=== PATIENT | male | born 1950 | race Caucasian/White ===

== ENCOUNTER 2024-01-22 22:47 | Emergency (ER) | payer MEDICARE, OTHER ==
[2024-01-22] MEDS ORDERED: Sodium Chloride 0.9% 10 ML Syringe FLUSH PRN (22:53)
[2024-01-22] MEDS: Ondansetron 4 MG/2 ML SDV IVPUSH ONE ×2 (22:56→23:36)
[2024-01-22 23:14] LABS: BASOPHILS ABSOLUTE AUTO 0.07 K/uL (0.00-0.20); BASOPHILS PERCENT AUTO 0.6 % (0.0-2.0); EOSINOPHILS ABSOLUTE AUTO 0.24 K/uL (0.00-0.50); EOSINOPHILS PERCENT AUTO 1.9 % (0.0-5.0); HEMATOCRIT 40.9 % (39.0-49.0); HEMOGLOBIN 13.5 g/dL (13.1-16.8); LYMPHOCYTES ABSOLUTE AUTO 0.71 K/uL (0.50-3.50); LYMPHOCYTES PERCENT AUTO 5.7 % (10.0-50.0); MEAN CORPUSCULAR HEMOGLOBIN 30.1 pg (28.2-33.3); MEAN CORPUSCULAR VOLUME 91.3 fL (84.0-98.0); MONOCYTES ABSOLUTE AUTO 0.32 K/uL (0.00-1.00); MONOCYTES PERCENT AUTO 2.6 % (2.0-14.0); NEUTROPHILS ABSOLUTE AUTO 11.17 K/uL (1.40-7.00); NEUTROPHILS PERCENT AUTO 89.2 % (45.0-80.0); PLATELET COUNT,PLT 258 K/uL (150-350); RED BLOOD CELL COUNT 4.48 M/uL (4.33-5.41); RED CELL DISTRIBUTION WIDTH 13.9 % (11.2-14.1); WHITE BLOOD CELL COUNT,WBC 12.5 K/uL (4.0-10.2)
[2024-01-22 23:27] LABS: PROTHROMBIN TIME 9.5 SEC (9.0-11.1)
[2024-01-22] MEDS: fentaNYL 50 MCG/ML SDV IVPUSH ONE (23:36)
[2024-01-22 23:39] LABS: ALANINE AMINOTRANSFERASE,ALT 91 U/L (12-78); ALBUMIN 3.2 g/dL (3.4-5.0); ALKALINE PHOSPHATASE 143 IU/L (46-116); ANION GAP 10.7 meq/L (7-15); ASPARTATE AMNIOTRANSFERASE,AST 120 U/L (15-37); BILIRUBIN TOTAL 1.3 mg/dL (0.2-1.0); BLOOD UREA NITROGEN,BUN 45 mg/dL (7-18); CALCIUM 8.8 mg/dL (8.5-10.1); CARBON DIOXIDE,CO2 24.3 mmol/L (21.0-32.0); CHLORIDE,CL 106 mmol/L (98-107); CREATININE 2.95 mg/dL (0.51-1.17); GLUCOSE RANDOM 193 mg/dL (70-99); LIPASE 66 U/L (16-77); MAGNESIUM 1.9 mg/dL (1.8-2.4); POTASSIUM,K 4.3 mmol/L (3.5-5.1); PROTEIN TOTAL,TP 7.1 g/dL (6.4-8.2); SODIUM,NA 141 mmol/L (136-145)
[2024-01-22 23:40] LABS: ESTIMATED GFR 22 mL/min (>=60); LACTIC ACID 1.2 mmol/L (0.4-2.0)
== END 2024-01-23 01:02 | disposition home or self-care (01) ==
LOC: LL.ED 22:47 → MERGE 22:47 → LL.ED 01-23 01:02
DX: K80.70 Calculus of gallbladder and bile duct without cholecystitis without obstruction (principal); K82.8 Other specified diseases of gallbladder; I10 Essential (primary) hypertension; J44.9 Chronic obstructive pulmonary disease, unspecified; E66.9 Obesity, unspecified; Z79.899 Other long term (current) drug therapy
CPT/HCPCS: 36415; 74176; 80053; 83605; 83690; 83735; 84484; 85025; 85610; 96374; 96375; 96376; 99284; 99284-25; J2405; J3010